=== PATIENT | male | born 1990 | race Two or more races ===

== ENCOUNTER 2020-03-18 13:49 | Emergency (ER) | payer BC, OTHER ==
[~2020-03-18] VITALS: Ht 190.5 cm; Wt 128.7 kg
[2020-03-18] MEDS ORDERED: SODIUM CHLORIDE 0.9% 1,000ML IVBOLUS ONE (15:30)
[2020-03-18] MEDS ORDERED: ONDANSETRON 2MG/ML, 2ML IVPush ONE (15:30)
[2020-03-18] MEDS ORDERED: KETOROLAC 30 MG/1 ML IVPush ONE (15:30)
[2020-03-18] MEDS ORDERED: DEXAMETHASONE 4 MG TABLET PO ONE (15:30)
[2020-03-18] MEDS ORDERED: DEXAMETHASONE 4 MG TABLET ONE (15:53)
[2020-03-18] MEDS ORDERED: ONDANSETRON 2MG/ML, 2ML ONE (15:54)
[2020-03-18] MEDS ORDERED: KETOROLAC 30 MG/1 ML ONE (15:54)
--- NOTE | 2020-03-18 16:03 | NUR ---
This pt tested COVID positive last Tuesday. Pt denies any medical hx. States he fills like it's "heavy" when he takes a breath. Denies any CP. Pt connected to all monitors. Call light in reach, postitioned to comfort, bed rails up x2.
[2020-03-18 16:14] LABS: BASOPHILS % (AUTO) 0 % (0-1); EOSINOPHILS % (AUTO) 0 % (1-7); LYMPHOCYTES % (AUTO) 27 % (22-44); MEAN CORPUSCULAR HEMOGLOBIN 31.3 pg (27.5-34.5); MEAN CORPUSCULAR HGB CONC 35.3 g/dL (33.2-36.2); MEAN PLATELET VOLUME 9.3 fL (7.4-10.4); MONOCYTES % (AUTO) 7 % (2-9); NEUTROPHILS % (AUTO) 66 % (42-75); PLATELET COUNT 132 x10^3/uL (130-400); RED BLOOD COUNT 5.56 x10^6/uL (4.38-5.82); RED CELL DISTRIBUTION WIDTH 13.1 % (9.4-14.8)
[2020-03-18 16:16] LABS: MD NO
[2020-03-18 16:18] LABS: ALBUMIN 3.9 g/dL (3.4-5.0); ANION GAP 8 mmol/L (5-15); CALCIUM 8.6 mg/dL (8.5-10.1); CHLORIDE 101 mmol/L (98-107)
[2020-03-18 16:19] LABS: CREATININE 0.85 mg/dL (0.7-1.3)
[2020-03-18 17:08] VITALS: BP 149/79
== END 2020-03-18 17:11 | disposition home or self-care (01) ==
LOC: ED 15:16
DX: U07.1 COVID-19 (principal); J12.9 Viral pneumonia, unspecified; H66.92 Otitis media, unspecified, left ear
CPT/HCPCS: 36415; 71045; 80048; 82040; 83605; 85025; 96361; 96374; 96375; 99284; J1885; J2405; J7030